=== PATIENT | female | born 1960 | race Caucasian/White ===

== ENCOUNTER 2018-09-21 04:35 | Emergency (ER) | payer MEDICAID ==
[2018-09-21] MEDS ORDERED: Oxycodone/Acetaminophen 5/325 mg Tab PO ONE (05:09)
--- NOTE | 2018-09-21 05:13 | ED PDOC ---
HPI: Dental Pain/Injury Time Seen by Provider: 09/21/18 04:50 Chief Complaint (Nursing): Dental Pain Chief Complaint (Provider): toothache History Per: Patient History/Exam Limitations: no limitations Onset/Duration Of Symptoms: Days (1) Current Symptoms Are (Timing): Still Present Dental: 1 - pain Additional Complaint(s): 57 y/o female presents for evaluation of left lower tooth pain x 1 day. Associated radiation of pain to left jaw, left side of face and head. Denies fever, nausea/vomiting, difficulty speaking/swallowing. No relief with Ibuprofen Past Medical History Reviewed: Historical Data, Nursing Documentation, Vital Signs Vital Signs: Last Vital Signs Temp 98.9 F 09/21/18 04:49 Pulse 79 09/21/18 04:49 Resp 15 09/21/18 04:49 BP 180/104 H 09/21/18 04:49 Pulse Ox 98 09/21/18 04:49 - Medical History PMH: Anxiety, Diabetes, HTN - Surgical History Surgical History: - Family History Family History: States: Unknown Family Hx - Immunization History Hx Tetanus Toxoid Vaccination: No Hx Influenza Vaccination: No Hx Pneumococcal Vaccination: No - Home Medications Home Medications: Ambulatory Orders Medication Instructions Recorded Cephalexin [cephalexin] 500 mg PO BID #20 cap 01/06/16 Methylprednisolone [Medrol Dose 4 mg PO DAILY #21 mg 01/06/16 Pack (21 tabs)] Ciprofloxacin HCl [Cipro] 500 mg PO BID #13 tab 06/09/16 Cyclobenzaprine [Cyclobenzaprine 10 mg PO BID PRN #10 tab 06/09/16 HCl] Naproxen [Naprosyn] 500 mg PO Q12 PRN #20 tablet 06/09/16 traMADol [Ultram] 50 mg PO Q8 PRN #12 tab 06/09/16 Amoxicillin [Amoxil 500 mg Cap] 500 mg PO TID #20 cap 09/21/18 Ibuprofen [Motrin Tab] 1 tab PO Q6 PRN #20 tab 09/21/18 traMADol [Ultram] 50 mg PO Q8 PRN #10 tab 09/21/18 - Allergies Allergies/Adverse Reactions: Allergies Allergy/AdvReac Type Severity Reaction Status Date / Time No Known Allergies Allergy Verified 09/21/18 04:56 Review of Systems ROS Statement: Except As Marked, All Systems Reviewed And Found Negative ENT: Positive for: Mouth Pain Physical Exam - Reviewed Nursing Documentation Reviewed: Yes Vital Signs Reviewed: Yes - Physical Exam Appears: Positive for: Well, Non-toxic, Uncomfortable Head Exam: Positive for: ATRAUMATIC, NORMAL INSPECTION, NORMOCEPHALIC Skin: Positive for: Normal Color Eye Exam: Positive for: Normal appearance ENT: Positive for: TM Is/Are (clear bilaterally), Other (tender left lower lateral incisor; no abscess, gingival tenderness, or abscess noted. No facial edema, erythema noted). Negative for: Pharyngeal Erythema, Tonsillar Exudate, Tonsillar Swelling Cardiovascular/Chest: Positive for: Regular Rate, Rhythm Respiratory: Positive for: Normal Breath Sounds Extremity: Positive for: Normal ROM Lymphatic: Positive for: Normal Exam Neurologic/Psych: Positive for: Alert, Oriented (x3) - ECG O2 Sat by Pulse Oximetry: 98 - Progress ED Course And Treament: -Toradol IM -Percocet PO -Amoxicillin PO Patient educated on findings, stressed importance of dental follow up Rx Ibuprofen, Tramadol, Amoxicillin provided Return precautions given Disposition - Clinical Impression Clinical Impression: Toothache - Patient ED Disposition Is Patient to be Admitted: No Counseled Patient/Family Regarding: Diagnosis, Need For Followup, Rx Given - Disposition Disposition: Routine/Home Disposition Time: 05:50 Condition: IMPROVED Prescriptions: Amoxicillin [Amoxil 500 mg Cap] 500 mg PO TID #20 cap Ibuprofen [Motrin Tab] 1 tab PO Q6 PRN #20 tab PRN Reason: Pain, Moderate (4-7) traMADol [Ultram] 50 mg PO Q8 PRN #10 tab PRN Reason: Pain, Severe (8-10) Instructions: Dental Pain Print Language: [place]IZ[place]
[2018-09-21 05:47] VITALS: BP 132/91
[2018-09-21 05:56] VITALS: PULSE 82; RESP 18; TEMP 98.2; O2SAT 99
== END 2018-09-21 05:56 | disposition home or self-care (01) ==
LOC: H.ER 04:35
DX: K08.89 Other specified disorders of teeth and supporting structures (principal); E11.9 Type 2 diabetes mellitus without complications; I10 Essential (primary) hypertension; F41.9 Anxiety disorder, unspecified
CPT/HCPCS: 96372; 99283; J1885